=== PATIENT | female | born 1980 | race Caucasian/White ===

== ENCOUNTER 2016-09-11 10:37 | Emergency (ER) | payer MEDICAID ==
[~2016-09-11] VITALS: Wt 70.0 kg
[2016-09-11] MEDS ORDERED: ACETAMINOPHEN 325 MG TAB PO STA (11:06)
[2016-09-11] MEDS ORDERED: SOD CHLORIDE 0.9% 1,000 ML IV STA (11:06)
[2016-09-11] MEDS ORDERED: METOCLOPRAMIDE 10 MG INJ IV ONE (11:30)
[2016-09-11 11:47] LABS: ADD UMIC YES; URINE BILIRUBIN (Dip) NEGATIVE (NEGATIVE); URINE BLOOD (Dip) TRACE (NEGATIVE); URINE COLOR LT. YELLOW (YELLOW); URINE KETONES (Dip) TRACE (NEGATIVE); URINE LEUKOCYTE ESTERASE (Dip) 1+ (NEGATIVE); URINE NITRITE (Dip) POSITIVE (NEGATIVE); URINE TOTAL PROTEIN (Dip) NEGATIVE (NEGATIVE); URINE UROBILINOGEN (Dip) 0.2 E.U./dL (0.1-1.0)
--- NOTE | 2016-09-11 11:53 | RADRPT ---
PROCEDURE: US OB. CLINICAL INDICATION: Pelvic pain TECHNIQUE: Transabdominal and endovaginal imaging of the gravid uterus is available for review COMPARISON: None available FINDINGS: There is a single intrauterine demonstrating a heart rate of 176 bpm. The crown-rump odessa th equals 2.28 cm, giving an estimated gestational age of 9 weeks 2 days by ultrasound criteria. No subchorionic hemorrhage is identified. The ovaries are unremarkable. IMPRESSION: Single live intrauterine with an estimated gestational age of 9 weeks 2 days by ultrasound criteria and an estimated date of delivery of 04/14/2017. RPTAT: HH .Shara Bear MD, MD Date Time Electronically viewed and signed by .Shara Bear MD, on 09/11/2016 11:53 .G/
[2016-09-11 12:06] LABS: BACTERIA,URINE MANY
[2016-09-11 12:50] LABS: BASOPHILS % 0.5 % (0.0-2.0); EOSINOPHILS # 0.1 10^3/ul (0.0-0.5); EOSINOPHILS % 1.1 % (0.0-7.0); HEMATOCRIT 39.2 % (37.0-47.0); HEMOGLOBIN 13.8 g/dl (12.0-16.0); LYMPHOCYTES # 2.1 10^3/ul (0.8-2.9); LYMPHOCYTES % 20.5 % (15.0-51.0); MEAN CORPUSCULAR HEMOGLOBIN 29.8 pg (29.0-33.0); MEAN CORPUSCULAR HGB CONC 35.3 g/dl (32.0-37.0); MEAN CORPUSCULAR VOLUME 84.5 fl (82.0-101.0); MONOCYTE # 0.6 10^3/ul (0.3-0.9); MONOCYTES % 6.3 % (0.0-11.0); NEUTROPHIL # 7.3 10^3/ul (1.6-7.5); NEUTROPHILS % 71.6 % (39.0-77.0); PLATELET COUNT 253 10^3/UL (140-440); RED BLOOD COUNT 4.64 10^6/ul (4.20-5.40); RED CELL DISTRIBUTION WIDTH 13.8 % (11.5-14.5); UNCORRECTED WBC 10.2 10^3/ul (4.8-10.8); WHITE BLOOD COUNT 10.2 10^3/ul (4.8-10.8)
[2016-09-11 12:51] LABS: CONDITION 1
[2016-09-11] MEDS ORDERED: ACETAMINOPHEN 500 MG TAB PO STA (13:20)
[2016-09-11] MEDS ORDERED: CEPHALEXIN 500 MG CAP PO ONE (13:30)
[2016-09-11] MEDS ORDERED: METO10TA92 PO (13:32)
[2016-09-11] MEDS ORDERED: CEPH-443 PO (13:32)
[2016-09-11] MEDS ORDERED: ACET500C5 PO (13:32)
--- NOTE | 2016-09-11 13:36 | ERD ---
ER Documentation Chief Complaint Date/Time DATE: 09/11/16 TIME: 13:34 Chief Complaint 8 days abd pain no vag bleed. 8 wks preg. HPI This 35-year-old female presents with lower abdominal pain for 8 days which is intermittent crampy. She just has vomiting. She is approximately 8 weeks by dates. She denies vaginal bleeding or specific right lower right upper quadrant abdominal pain. She is a G5 para 4 per ROS All systems reviewed and are negative except as per history of present illness. Medications Home Meds Active Scripts Metoclopramide* (Reglan*) 10 Mg Tablet, 10 MG PO Q6 Y for NAUSEA AND/OR VOMITING , #15 TAB Prov:TYRONE DARNELL MD 09/11/16 Acetaminophen* (Tylophen*) 500 Mg Capsule, 1 CAP PO Q6H Y for PAIN AND OR ELEVATED TEMP, #15 CAP Prov:TYRONE DARNELL MD 09/11/16 Cephalexin* (Keflex*) 500 Mg Capsule, 55 MG PO QID for 5 Days, CAP Prov:TYRONE DARNELL MD 09/11/16 Allergies Allergies: Coded Allergies: No Known Drug Allergies (Verified Allergy, Mild, 02/12/11) PMhx/Soc Medical and Surgical Hx: pt denies Surgical Hx History of Surgery: No Anesthesia Reaction: No Hx Neurological Disorder: No Hx Respiratory Disorders: No Hx Cardiac Disorders: Yes (htn) Hx Psychiatric Problems: No Hx Miscellaneous Medical Probl: Yes (gastritis) Hx Alcohol Use: No Hx Substance Use: No Hx Tobacco Use: No Smoking Status: Never smoker Physical Exam Vitals Vital Signs Date Time Temp Pulse Resp B/P Pulse Ox O2 Delivery O2 Flow Rate FiO2 09/11/16 10:39 97.9 100 20 113/71 99 Physical Exam Const: [] Alert, [id number] per Head: Atraumatic Eyes: Normal Conjunctiva ENT: Normal External Ears, Nose and Mouth. Neck: Full range of motion..~ No meningismus. Resp: Clear to auscultation bilaterally Cardio: Regular rate and rhythm, no murmurs Abd: Soft mild lower suprapubic tenderness. No tenderness at McBurney's point and no rebound no masses., non distended. Normal bowel sounds Skin: No petechiae or rashes Back: No midline or flank tenderness Ext: No cyanosis, or edema Neur: Awake and alert Psych: Normal Mood and Affect Result Diagram: 09/11/16 1125 Results 24 hrs Laboratory Tests Test 09/11/16 11:25 09/11/16 13:00 Basophils # 0.010^3/ul Basophils % 0.5% Beta HCG, Quantitative 624191.0mIU/ml Eosinophils # 0.110^3/ul Eosinophils % 1.1% Hematocrit 39.2% Hemoglobin 13.8g/dl Lymphocytes # 2.110^3/ul Lymphocytes % 20.5% Mean Corpuscular Hemoglobin 29.8pg Mean Corpuscular Hemoglobin Concent 35.3g/dl Mean Corpuscular Volume 84.5fl Mean Platelet Volume 10.0fl Monocytes # 0.610^3/ul Monocytes % 6.3% Neutrophils # 7.310^3/ul Neutrophils % 71.6% Nucleated Red Blood Cells # 0.010^3/ul Nucleated Red Blood Cells % 0.0/100WBC Platelet Count 54662^3/UL Red Blood Count 4.6410^6/ul Red Cell Distribution Width 13.8% Urine Bacteria MANY Urine Bilirubin NEGATIVE Urine Clarity SLIGHTLY CLOUDY Urine Color LT. YELLOW Urine Epithelial Cells FEW Urine Glucose 0.1%% Urine Hemoglobin TRACE Urine Ketones TRACE Urine Leukocyte Esterase 1+ Urine Microscopic RBC 2-5/HPF Urine Microscopic WBC 25-50/HPF Urine Nitrite POSITIVE Urine Specific [place] 1.025 Urine Total Protein NEGATIVE Urine Urobilinogen 0.2 E.U./dL Urine pH 6.0 White Blood Count 10.210^3/ul Bedside Glucose 63mg/dL Current Medications Medications (Trade) Dose Ordered Sig/Carmen Route PRN Reason Start Time Stop Time Status Last Admin Dose Admin Sodium Chloride (NS) 1,000 ml @ 1,000 mls/hr Q1H STAT IV 09/11/16 11:06 09/11/16 12:05 DC 09/11/16 11:54 Acetaminophen (Tylenol Tab) 650 mg ONCE STAT PO 09/11/16 11:06 09/11/16 11:08 DC 09/11/16 11:54 Metoclopramide HCl (Reglan) 10 mg ONCE ONCE IV 09/11/16 11:30 09/11/16 11:31 DC 09/11/16 11:54 Acetaminophen (Tylenol Tab) 500 mg ONCE STAT PO 09/11/16 13:20 09/11/16 13:28 DC Cephalexin (Keflex) 500 mg ONCE ONCE PO 09/11/16 13:30 09/11/16 13:31 DC Procedures/MDM Urine shows positive leukocytes nitrites and trace hemoglobin. Patient is Rh+. Pelvic ultrasound shows a single live intrauterine approximately 9 weeks without evidence of acute complications. Patient was given Keflex 500 mg by mouth, Reglan 10 mg IV and 1 L normal saline IV. Patient had benign abdomen and was hungry and asking for food after observation treatment. Patient has lower abdominal pain of uncertain etiology during her first trimester with signs of UTI she will be treated for this. There is no signs or symptoms currently to suggest appendicitis, acute abdomen, ectopic , tubal ovarian abscess, PID, additional causes of abdominal pain. Patient is advised to follow-up with her primary care doctor and OB as directed and scheduled. Departure Diagnosis: Primary Impression: Abdominal pain Abdominal location: lower abdomen, unspecified Qualified Code: R10.30 - Lower abdominal pain Condition: Stable Patient Instructions: Abdominal Pain, Early Additional Instructions: Examines de embarazo normal hoy. tiene poquito infeccion en orina y vamos a tratar. Cheque otro vez con park doctor primario en el proximo eli or regresa para mas o nueva simptomas. TYRONE DARNELL MD Sep 11, 2016 13:36
[2016-09-11 13:56] VITALS: BP 106/59; PULSE 89; RESP 16; TEMP 98.3
== END 2016-09-11 13:58 | disposition home or self-care (01) ==
LOC: FTE 10:37
DX: O26.891 Other specified pregnancy related conditions, first trimester (principal); R10.30 Lower abdominal pain, unspecified; O10.011 Pre-existing essential hypertension complicating pregnancy, first trimester; R10.2 Pelvic and perineal pain; Z3A.09 9 weeks gestation of pregnancy
CPT/HCPCS: 36415; 76801; 81001; 82962; 84702; 85025; 86900; 86901; 96374; J2765; J7030; Z7502; Z7610; 81003

== ENCOUNTER → 2016-09-21 | Outpatient (CLI) | payer MEDICAID ==
[~2016-09-21] MED LIST: ACET500C5 PO; CEPH-443 PO; METO10TA92 PO
--- NOTE | 2016-09-21 09:12 | RADRPT ---
PROCEDURE: US Pelvis. CLINICAL INDICATION: . TECHNIQUE: Multiple sonographic images of the pelvis were obtained utilizing a transabdominal and endovaginal technique. The images were reviewed on a PACS workstation. COMPARISON: 09/11/2016. FINDINGS: There is a single living intrauterine gestation. No definite yolk sac is not visualized on the curr ent study. There is cardiac activity 168 beats per minute. The mean gestational sac size is 5.01 c m consistent with 96-qmwv-8-day gestation. The mean crown-rump length is 3.75 cm consistent with a 16-uwfo-0-day gestation. There is a small subchorionic hemorrhage present. There is a small subchor ionic hemorrhage present. There are no adnexal masses seen and no free fluid in the cul-de-sac. IMPRESSION: 1. Single living intrauterine gestation with a mean gestational age by ultrasound of 11 weeks 0 days plus or minus 5 days. Estimated date of delivery is 04/12/2017. 2. Small subchorionic hemorrhage. RPTAT: [facility] Physician Deepthi Date Time Electronically viewed and signed by Physician Deepthi on 09/21/2016 09:12 /
== END | disposition home or self-care (01) ==
LOC: U/S 08:21
PROVIDERS: ATTEND Obstetrics & Gynecology
DX: Z34.91 Encounter for supervision of normal pregnancy, unspecified, first trimester (principal); Z3A.11 11 weeks gestation of pregnancy
CPT/HCPCS: 76801

== ENCOUNTER 2017-01-18 18:13 | Emergency (ER) | payer MEDICAID ==
[~2017-01-18] VITALS: Ht 160 cm; Wt 77.5 kg
[2017-01-18 18:17] VITALS: Ht 160 cm; Wt 77.5 kg
--- NOTE | 2017-01-18 20:58 | RADRPT ---
PROCEDURE: Ultrasound of the right lower extremity venous system. CLINICAL INDICATION: Right leg pain and swelling, deep venous thrombosis TECHNIQUE: Lackey scale with and without compression, color doppler, spectral doppler of the venous system of the right lower extremity was performed. Venous augmentation maneuvers were utilized. COMPARISON: No prior studies are available for comparison. FINDINGS: Common femoral vein: Patent. Femoral vein: Patent. Popliteal vein: Patent. Calf veins: Patent. No soft tissue abnormalities are identified. IMPRESSION: No evidence of a deep vein thrombosis within the right lower extremity. RPTAT: AADD .Randy Wisdom MD, MD Date Time Electronically viewed and signed by .Randy Wisdom MD, on 01/18/2017 20:58 .B/
[2017-01-18 21:20] VITALS: BP 109/59; PULSE 80; RESP 20
[2017-01-18] MEDS ORDERED: ACETAMINOPHEN 325 MG TAB PO ONE (21:30)
--- NOTE | 2017-01-18 21:39 | ERD ---
ER Documentation Chief Complaint Date/Time DATE: 01/18/17 TIME: 21:36 Chief Complaint pt presents with R leg pain and swelling sent to r/o DVT. HPI This patient is a 36-year-old female who is Ab0 LC for currently 28 weeks presenting to the emergency department for right leg pain which began the same. She states it is 7 out of 10 and constant. It is localized to the sewell area. Symptoms are aggravated by walking. She is taken no medication for relief of symptoms. The patient denies vaginal bleeding, suprapubic cramping, vaginal discharge, fevers, chills, or other symptoms at this time. ROS All systems reviewed and are negative except as per history of present illness. Medications Home Meds Active Scripts Metoclopramide* (Reglan*) 10 Mg Tablet, 10 MG PO Q6 Y for NAUSEA AND/OR VOMITING , #15 TAB Prov:TYRONE DARNELL MD 09/11/16 Acetaminophen* (Tylophen*) 500 Mg Capsule, 1 CAP PO Q6H Y for PAIN AND OR ELEVATED TEMP, #15 CAP Prov:TYRONE DARNELL MD 09/11/16 Cephalexin* (Keflex*) 500 Mg Capsule, 55 MG PO QID for 5 Days, CAP Prov:TYRONE DARNELL MD 09/11/16 Allergies Allergies: Coded Allergies: No Known Drug Allergies (Verified Allergy, Mild, 01/18/17) PMhx/Soc History of Surgery: No Anesthesia Reaction: No Hx Neurological Disorder: No Hx Respiratory Disorders: No Hx Cardiac Disorders: Yes (htn) Hx Psychiatric Problems: No Hx Miscellaneous Medical Probl: Yes (gastritis) Hx Alcohol Use: No Hx Substance Use: No Hx Tobacco Use: No Smoking Status: Never smoker FmHx Noncontributory for chief complaint Physical Exam Vitals Vital Signs Date Time Temp Pulse Resp B/P Pulse Ox O2 Delivery O2 Flow Rate FiO2 01/18/17 21:20 80 20 109/59 99 Room Air 01/18/17 18:17 98.3 96 16 107/68 97 Physical Exam Const: The patient is resting comfortably in no acute distress. Head: Atraumatic Eyes: Normal Conjunctiva ENT: Normal External Ears, Nose and Mouth. Neck: Full range of motion..~ No meningismus. Resp: Clear to auscultation bilaterally Cardio: Regular rate and rhythm, no murmurs Abd: Gravid abdomen. Soft, non tender, non distended. Normal bowel sounds Skin: No petechiae or rashes Back: No midline or flank tenderness Ext: No cyanosis, or edema. There is tenderness palpation of the right sewell with superficial varicose veins noted. There is no calf pain or erythema. Neur: Awake and alert Psych: Normal Mood and Affect Results 24 hrs Current Medications Medications (Trade) Dose Ordered Sig/Carmen Route PRN Reason Start Time Stop Time Status Last Admin Dose Admin Acetaminophen (Tylenol Tab) 650 mg ONCE ONCE PO 01/18/17 21:30 01/18/17 21:30 DC 01/18/17 21:19 [place] [id number] Radiology Main Line: [phone] DIAGNOSTIC IMAGING REPORT Patient: CARLOS BANDA : 1980 Age: 36 Sex: F MR #: [id number] DOS: 01/18/17 0000 Ordering MD: RANDY SR PA-C Location: [facility] Room/Bed: PROCEDURE: Ultrasound of the right lower extremity venous system. CLINICAL INDICATION: Right leg pain and swelling, deep venous thrombosis TECHNIQUE: Lackey scale with and without compression, color doppler, spectral doppler of the venous system of the right lower extremity was performed. Venous augmentation maneuvers were utilized. COMPARISON: No prior studies are available for comparison. FINDINGS: Common femoral vein: Patent. Femoral vein: Patent. Popliteal vein: Patent. Calf veins: Patent. No soft tissue abnormalities are identified. IMPRESSION: No evidence of a deep vein thrombosis within the right lower extremity. RPTAT: AADD .Randy Wisdom MD, MD Date Time Electronically viewed and signed by .Randy Wisdom MD, MD on 01/18/2017 20:58 .B/ CC: RANDY SR PA-C Procedures/MDM 36-year-old female presents to the emergency department with complaints of right sewell pain which began this morning. On physical examination the patient' s vitals are within normal limits. The patient has absolutely no obstetrics complaints although after she was cleared in the emergency department she was transferred up to the L&D department for clearance of the . Examination of the right lower extremity showed some varicosities superficially to the right sewell with some tenderness palpation but there is no calf pain or erythema. Venous Doppler of the right lower extremity showed No evidence of a deep vein thrombosis and was interpreted by the radiologist. I low suspicion for DVT, cellulitis, or other emergent conditions. The patient is to have close follow-up with the primary care physician within the next 1-2 days. The patient is to have close follow-up with her [facility] [employer] specialist within the next 1- 2 days. Strict ER return precautions were discussed and the patient demonstrates good understanding. Departure Diagnosis: Primary Impression: Pain of right leg Condition: Fair Patient Instructions: Possible Causes of Low Back or Leg Pain Referrals: VARUN AMADOR MD (PCP) Additional Instructions: Ir a departamento de emabrazada para evaluacion de park joshua. No mas mejor en 2-3 eli, regresar. Mas peor en 24 horas, regresear rapidamente. Ir a doctor primario in 5-7 eli. Usar instrucciones cuando aliyah medicamento. RANDY SR PA-C January 18, 2017 21:39
[2017-01-18] MEDS ORDERED: PREN1TAB17 PO (22:18)
== END 2017-01-18 21:26 | disposition home or self-care (01) ==
LOC: FTE 18:13
DX: O99.89 Other specified diseases and conditions complicating pregnancy, childbirth and the puerperium (principal); M79.661 Pain in right lower leg; O10.013 Pre-existing essential hypertension complicating pregnancy, third trimester; Z3A.28 28 weeks gestation of pregnancy
CPT/HCPCS: 93971; Z7502; Z7610

== ENCOUNTER 2017-01-18 21:36 | Outpatient (CLI) | payer MEDICAID ==
[~2017-01-18] VITALS: Ht 149.9 cm; Wt 76.8 kg
[2017-01-18 22:13] VITALS: Ht 149.9 cm; Wt 76.8 kg
[2017-01-18 22:15] VITALS: BP 96/53; PULSE 81; RESP 18
[2017-01-18] MEDS ORDERED: PREN1TAB17 PO (22:18)
--- NOTE | 2017-01-19 02:07 | PN ---
Date/Time of Note Date/Time of Note DATE: 01/19/17 TIME: 02:02 OB Subjective Subjective Subjective 36 Year-old with SIUP at 28 presents with a chief complaint of right leg pain. She was seen in ER, work up done and sent to triage for evaluation. She has been receiving her care with [facility]. She states good movement. She denies nausea, vomiting, shortness of breath, chest pain, and abdominal pain between contractions, headache, visual changes, vaginal bleeding or LOF. OB Objective Objective Objective General: Patient appears well, alert and oriented, NAD, appropriate mood and affect ABD: gravid, soft, non-tender. Back: No CVA tenderness (B/L) LE: No clubbing, cyanosis, edema, thigh or calf tenderness bilaterally. Varicose vein at right leg FHT: 135 bpm , moderate variability with acceleration, no deceleration-category I Contractions: None OB Assessment/Plan Other plan: 36 Year-old with SIUP at 28 presents with right leg pain, her evaluation in ER was unremarkable - FHR: No sign of metabolic acidosis- Category I - Continuous EFM, toco - Contractions: None. - Reactive NST. - Recommend use support stocking - Symptoms and sign of labor, preeclampsia, kick count discussed with patient, she voiced understanding. All of her questions answered. - Patient was discharged home in stable condition with the appropriate discharge instructions provided. I would like patient to have close follow-up with her primary physician or outpatient clinic in 1-2 days or return to the ER for worsening symptoms or any other urgent concerns. PHYLLIS CHANG January 19, 2017 02:07
== END 2017-01-18 23:55 | disposition home or self-care (01) ==
LOC: OBT 21:36 → L-D 21:39 → OBT 23:55
PROVIDERS: ATTEND Obstetrics & Gynecology
DX: O26.892 Other specified pregnancy related conditions, second trimester (principal); M79.604 Pain in right leg; Z3A.28 28 weeks gestation of pregnancy
CPT/HCPCS: G0463

== ENCOUNTER 2017-04-02 12:22 | Inpatient (IN) | payer MEDICAID ==
[~2017-04-02] VITALS: Ht 152.4 cm; Wt 77.0 kg
[~2017-04-02 12:22] MED LIST changes: +PREN1TAB17 PO
[2017-04-02] MEDS: LACTATED RINGER'S 1,000 ML IV SCH ×3 (13:26→20:15)
[2017-04-02 13:28] VITALS: Ht 152.4 cm; Wt 77.0 kg
[2017-04-02 13:29] VITALS: BP 114/67; PULSE 91; RESP 18
[2017-04-02] MEDS ORDERED: CARBOPROST 250 MCG INJ IM PRN ×2 (13:30→20:00)
[2017-04-02] MEDS ORDERED: MISOPROSTOL 200 MCG TAB PR PRN ×2 (13:30→20:00)
[2017-04-02] MEDS ORDERED: METHYLERGONOVINE 0.2 MG INJ IM PRN ×2 (13:30→20:00)
[2017-04-02] MEDS ORDERED: OXYTOCIN 30 UNITS/LR 500 ML IV SCH (13:30)
[2017-04-02] MEDS ORDERED: OXYTOCIN 30 UNITS/LR 500 ML IV PRN ×2 (13:30→20:00)
[2017-04-02] MEDS ORDERED: CEFAZOLIN 2 GM/50 ML (PMX) 50 ML IV SCH (13:30)
[2017-04-02 13:36] LABS: BASOPHILS % 0.4 % (0.0-2.0); EOSINOPHILS # 0.1 10^3/ul (0.0-0.5); EOSINOPHILS % 0.8 % (0.0-7.0); HEMATOCRIT 34.7 % (37.0-47.0); HEMOGLOBIN 11.2 g/dl (12.0-16.0); LYMPHOCYTES # 2.5 10^3/ul (0.8-2.9); LYMPHOCYTES % 24.6 % (15.0-51.0); MEAN CORPUSCULAR HEMOGLOBIN 25.4 pg (29.0-33.0); MEAN CORPUSCULAR HGB CONC 32.3 g/dl (32.0-37.0); MEAN CORPUSCULAR VOLUME 78.7 fl (82.0-101.0); MEAN PLATELET VOLUME 10.6 fl (7.4-10.4); MONOCYTE # 0.7 10^3/ul (0.3-0.9); NEUTROPHIL # 6.7 10^3/ul (1.6-7.5); NEUTROPHILS % 65.7 % (39.0-77.0); PLATELET COUNT 238 10^3/UL (140-415); RED BLOOD COUNT 4.41 10^6/ul (4.20-5.40); RED CELL DISTRIBUTION WIDTH 13.9 % (11.5-14.5); WHITE BLOOD COUNT 10.2 10^3/ul (4.8-10.8)
[2017-04-02] MEDS ORDERED: CALC600T11 PO (13:40)
[2017-04-02 13:49] LABS: INR 0.96; PROTIME 12.8 Sec (12.2-14.2)
[2017-04-02] MEDS ORDERED: EPHEDrine SULFATE 50 MG/5 ML SYG ONE (15:08)
[2017-04-02] MEDS ORDERED: ONDANSETRON 4 MG INJ ONE (15:08)
[2017-04-02] MEDS ORDERED: OXYTOCIN 30 UNITS/LR 500 ML IV ONE (15:08)
[2017-04-02] MEDS ORDERED: OXYTOCIN 10 UNIT INJ ONE (15:08)
[2017-04-02] MEDS ORDERED: morphine SULFATE/PF (10 MG/10 ML) INJ ONE (15:08)
[2017-04-02] MEDS ORDERED: METOCLOPRAMIDE 10 MG INJ ONE (15:08)
--- NOTE | 2017-04-02 16:19 | HP ---
Date/Time of Note Date/Time of Note DATE: 04/02/17 TIME: 16:15 OB - History Hx of Present Free Text/Dictation admitted for repeat C/S Last Menstrual Period: Jul 03, 2016 Estimated Due Date: Apr 09, 2017 : 5 Para: 4 Care: Good Care Ultrasounds: Normal mid trimester US Obstetrical Complications: None Medical Complications: None, Other (previous C/S X 1 ) Past Family/Social History * Past Medical, Surgical, Family and Obstetric Histories reviewed from chart. Blood Type: B+ Rubella: immune RPR/VDRL: Negative GBS Status: Negative HBsAG: Negative OB Admission Exam Vital Signs Vital Signs Vital Signs Date Time Temp Pulse Resp B/P Pulse Ox O2 Delivery O2 Flow Rate FiO2 04/02/17 13:29 98.0 91 18 114/67 Room Air Physical Exam HEENT: WNL Heart: Rhythm Normal Lungs: Clear, Equal Abdomen: WNL Extremities: Normal Reflexes: Normal Cervical Dilatation: None Effacement: 0% Station: -3 Membranes: Intact Heart Rate: 140's Accelerations: Accelerations Present Decelerations: No Decelerations Varibility: Marked Contractions on Admission: >10 Minutes Apart Last 72 hours Lab Results CBC & BMP 04/02/17 13:15 OB Assessment/Plan Reason for admission: section Other Assessment: Term gestation Other plan: Repeat VARUN AMADOR MD Apr 02, 2017 16:19
--- NOTE | 2017-04-02 16:22 | OPR ---
Operative Report Planned Procedure Procedure date Apr 02, 2017 Procedure(s) Repeat Performed by: VARUN AMADOR MD Assisting provider: HANS KATZ MD Anesthesiologist: ROBBIE REIS MD Pre-procedure diagnosis Term gestation Previous Anesthesia Type: spinal Procedure Description Under satisfactory anaesthesia a Pfannenstiel incision was made two fingerbreadth above and parallel to the symphysis of pubis around the previous scar and previous scar was removed Incision was extended laterally to the border of the Recti muscles on either sides. Incision was carried down with sharp and blunt dissection until fascia was reached. Anterior Recti muscle fascia was incised in mid portion and incision extended laterally to the border of skin incision. Fascia was mobilized from muscle superiorly and Recti muscles were from midline using sharp and blunt dissection. Peritoneum was visualized; Avoiding bowel and bladder it was incised . Incision was extended superiorly and inferiorly. Bladder blade was placed. Posterior peritoneum covering the lower segment of the uterus and lower segment of the uterus were incised.Low transverse uteine incision was made on lower segment of the uterus. Incision extended laterally to the border of Round Lig. on either sides and baby was delivered from OT. position . Amniotic fluid appeared clear. Cord blood was obtained and cord had 3 vessels . Placenta was delivered spontaneously and appeared intact and complete. Intrauterine cavity was rubbed with a laparotomy sponge. Uterine incision was closed in 2 layers using running stitches of No1 Monocryl. Hemostasis appeared secure. Ovaries and Fallopian tubes were within normal limits. Announcing needle, lap sponge and instrument count to be correct abdomen was closed in layers as follows: Peritoneum and Recti muscles with running stitches of 20 Vicryl. Fascia with running stitch of No 1 PDS. Subcutaneous tissue with running stitches of 20 Chromic and skin was closed using song. Patient tolerated the procedure well and was transferred to [facility] in good condition. Post-Procedure Post-procedure diagnosis Repeat Findings: Live Baby in OT position Clear amniotic fluid Normal fallopian tubes and ovaries Complications: None Pt Condition post procedure: stable Disposition: PACU Physician Certification I, the undersigned physician, hereby certify that I have discussed the procedure described in this consent form with this patient (or the patient's legal financial sales representative), including: * The risk and benefits of the procedure; * Any adverse reactions that may reasonably be expected to occur; * Any alternative efficacious methods of treatment which may be medically viable ; * The potential problems that may occur during recuperation; * Potential for blood transfusion and associated risks/benefits; and * Any research or economic interest I may have regarding this treatment. I further certify that the patient/legally responsible person was encouraged to ask question and that all questions were answered. VARUN AMADOR MD Apr 02, 2017 16:21
[2017-04-02] MEDS ORDERED: ONDANSETRON 4 MG INJ IV PRN (16:30)
[2017-04-02] MEDS ORDERED: DIPHENHYDRAMINE 50 MG INJ IV PRN (16:30)
[2017-04-02] MEDS ORDERED: NALOXONE (0.4 MG/ML) INJ IV PRN (16:30)
[2017-04-02] MEDS ORDERED: EPHEDrine SULFATE 50 MG/5 ML SYG IV PRN (16:30)
[2017-04-02] MEDS ORDERED: morphine 2 MG INJ IV PRN ×2 (16:30)
[2017-04-02] MEDS ORDERED: morphine SULFATE/PF (10 MG/10 ML) INJ SPINAL ONE (16:30)
[2017-04-02] MEDS: KETOROLAC 30 MG INJ IV PRN (17:41)
[2017-04-02 19:25] VITALS: BP 101/62; PULSE 101
[2017-04-02 19:46] VITALS: BP 114/65; PULSE 114; RESP 20
[2017-04-02] MEDS ORDERED: NA PHOSPHATE/BIPHOS 133 ML ENEMA PR PRN (20:00)
[2017-04-02] MEDS ORDERED: ACETAMINOPHEN/CODEINE #3 TAB PO PRN (20:00)
[2017-04-02] MEDS ORDERED: LANOLIN 7 GM TUBE TOP PRN (20:00)
[2017-04-02 20:15] VITALS: BP 105/59; PULSE 107; RESP 18
[2017-04-02] MEDS: SENNA/DOCUSATE NA (8.6MG/50MG) TAB PO SCH (21:00)
[2017-04-02] MEDS: IBUPROFEN 800 MG TAB PO SCH (22:00)
[2017-04-02] MEDS: CEFAZOLIN 2 GM/50 ML (PMX) 50 ML IV SCH (22:24)
[2017-04-03 00:30] VITALS: BP 115/63; PULSE 99; RESP 18
[2017-04-03] MEDS: CLINDAMYCIN 300 MG CAP PO SCH ×5 (00:42→23:35)
[2017-04-03] MEDS: LACTATED RINGER'S 1,000 ML IV SCH ×2 (03:29→12:09)
[2017-04-03 04:13] VITALS: BP 98/57; PULSE 95; RESP 18
[2017-04-03] MEDS: KETOROLAC 30 MG INJ IV PRN ×2 (05:58→14:23)
[2017-04-03] MEDS: CEFAZOLIN 2 GM/50 ML (PMX) 50 ML IV SCH ×2 (05:58→12:10)
[2017-04-03] MEDS: IBUPROFEN 800 MG TAB PO SCH ×3 (06:00→23:35)
[2017-04-03 07:13] LABS: BASOPHILS % 0.1 % (0.0-2.0); EOSINOPHILS % 0.1 % (0.0-7.0); HEMATOCRIT 27.9 % (37.0-47.0); HEMOGLOBIN 8.9 g/dl (12.0-16.0); LYMPHOCYTES # 1.8 10^3/ul (0.8-2.9); LYMPHOCYTES % 12.2 % (15.0-51.0); MEAN CORPUSCULAR HEMOGLOBIN 25.3 pg (29.0-33.0); MEAN CORPUSCULAR HGB CONC 31.9 g/dl (32.0-37.0); MEAN CORPUSCULAR VOLUME 79.3 fl (82.0-101.0); MEAN PLATELET VOLUME 10.2 fl (7.4-10.4); MONOCYTES % 7.1 % (0.0-11.0); NEUTROPHIL # 11.5 10^3/ul (1.6-7.5); NEUTROPHILS % 79.5 % (39.0-77.0); PLATELET COUNT 177 10^3/UL (140-415); RED BLOOD COUNT 3.52 10^6/ul (4.20-5.40); RED CELL DISTRIBUTION WIDTH 13.8 % (11.5-14.5); WHITE BLOOD COUNT 14.5 10^3/ul (4.8-10.8)
[2017-04-03 08:30] VITALS: BP 100/57; PULSE 71; RESP 16
[2017-04-03] MEDS: SENNA/DOCUSATE NA (8.6MG/50MG) TAB PO SCH ×2 (09:00→23:35)
[2017-04-03] MEDS ORDERED: BISACODYL 10 MG SUPP PR ONE (10:30)
[2017-04-03 12:00] VITALS: BP 101/60; PULSE 72; RESP 18
[2017-04-03 16:00] VITALS: BP 98/48; PULSE 73; RESP 18
--- NOTE | 2017-04-03 17:22 | PN ---
Date/Time of Note Date/Time of Note DATE: 04/03/17 TIME: 17:21 Assessment/Plan VTE Prophylaxis VTE Prophylaxis Intervention: ambulation Lines/Catheters IV Catheter Type (from Nrsg): Peripheral IV Assessment/Plan Assessment/Plan Status post postop day 1 We will advance diet and ambulate Subjective 24 Hr Interval Summary No bowel movement Passing flatus Constitutional: BM, ambulates, flatus, improved, no complaints, urine output Pain Control: well controlled Exam/Review of Systems Vital Signs Vitals Vital Signs Date Time Temp Pulse Resp B/P Pulse Ox O2 Delivery O2 Flow Rate FiO2 04/03/17 16:00 98.9 73 18 98/48 Room Air 04/03/17 15:50 98 21 Intake and Output 04/02/17 04/02/17 04/03/17 15:00 23:00 07:00 Intake Total 2000 ml Output Total 1000 ml 1000 ml Balance 1000 ml -1000 ml Exam Free Text/Dictation Abdomen is soft and tender around incision Bowel sounds are present Incision is covered Constitutional: alert, oriented, well developed Psych: nl mood/affect, no complaints Head: atraumatic, normocephalic Eyes: EOMI, nl conjunctiva, nl lids, nl sclera ENMT: mucosa pink and moist, nl external ears & nose, nl lips & teeth, nl nasal mucosa & septum Neck: non-tender, supple Respiratory: clear to auscultation, normal air movement Cardiovascular: nl pulses, regular rate and rhythm Gastrointestinal: nl liver, spleen, non-tender, soft Drains None Musculoskeletal: nl extremities to inspection, nl gait and stance Extremities: normal pulses Neurological: CASH APPLICATIONS REPRESENTATIVE II-XII intact, nl mental status, nl speech, nl strength Skin: nl turgor, rash or lesions Lymph: nl lymph nodes Results Result Diagram: 04/03/17 0642 VAURN AMADOR MD Apr 03, 2017 17:22
[2017-04-03] MEDS: OXYCODONE/ACETAMINOPHEN (5/325) TAB PO PRN (19:42)
[2017-04-03 20:15] VITALS: BP 115/55; PULSE 84; RESP 18
[2017-04-04] MEDS: OXYCODONE/ACETAMINOPHEN (5/325) TAB PO PRN ×4 (01:47→20:03)
[2017-04-04 05:29] VITALS: BP 97/65; PULSE 65; RESP 18
[2017-04-04] MEDS: IBUPROFEN 800 MG TAB PO SCH ×3 (06:00→22:00)
[2017-04-04] MEDS: CLINDAMYCIN 300 MG CAP PO SCH ×3 (06:08→18:14)
[2017-04-04 08:12] LABS: BASOPHILS % 0.4 % (0.0-2.0); EOSINOPHILS # 0.1 10^3/ul (0.0-0.5); EOSINOPHILS % 1.4 % (0.0-7.0); HEMATOCRIT 28.8 % (37.0-47.0); LYMPHOCYTES # 2.9 10^3/ul (0.8-2.9); LYMPHOCYTES % 28.1 % (15.0-51.0); MEAN CORPUSCULAR HEMOGLOBIN 24.8 pg (29.0-33.0); MEAN CORPUSCULAR HGB CONC 31.3 g/dl (32.0-37.0); MEAN CORPUSCULAR VOLUME 79.3 fl (82.0-101.0); MEAN PLATELET VOLUME 10.3 fl (7.4-10.4); MONOCYTE # 0.9 10^3/ul (0.3-0.9); MONOCYTES % 8.8 % (0.0-11.0); NEUTROPHIL # 6.3 10^3/ul (1.6-7.5); NEUTROPHILS % 60.1 % (39.0-77.0); PLATELET COUNT 212 10^3/UL (140-415); RED BLOOD COUNT 3.63 10^6/ul (4.20-5.40); RED CELL DISTRIBUTION WIDTH 14.2 % (11.5-14.5); WHITE BLOOD COUNT 10.4 10^3/ul (4.8-10.8)
[2017-04-04 08:15] VITALS: BP 103/58; PULSE 72; RESP 16
[2017-04-04] MEDS: SENNA/DOCUSATE NA (8.6MG/50MG) TAB PO SCH ×2 (08:48→20:03)
--- NOTE | 2017-04-04 15:35 | DS ---
Date/Time of Note Date/Time of Note home next day DATE: 04/04/17 TIME: 15:32 Obstetrical Discharge Record Final Diagnosis Final Diagnosis: Term delivered Other Final Diagnosis S/P C/S Vaginal Delivery Obstetrical Delivery: Bilateral Tubal Ligation Section Section: Repeat Condition on Discharge Physical Assessment Last Vitals: see nurses notes Voiding: Yes Bowel Movement: Yes Breast: Soft, non-tender, Filling Fundus: Firm Abdomen and Incision: soft BS + tender in lower segments Incision: mosqueda no induration and or erythema Episiotomy: NA Calf Tenderness: No Patient Condition: Good VARUN AMADOR MD Apr 04, 2017 15:35
--- NOTE | 2017-04-04 15:37 | DS ---
Date/Time of Note Date/Time of Note DATE: 04/04/17 TIME: 15:35 Discharge Summary Admission/Discharge Info Admit Date/Time Apr 02, 2017 at 12:22 Discharge Date/Time 04/05/2017 Discharge Diagnosis S/P C/S Patient Condition: Good Procedures repeat C/S Hx of Present Illness 36 y/o female had repeat C/S Hospital Course uncomplicated Home Meds Reported Medications Calcium Carbonate* (Calcium Carbonate*) 600 MG Ca Tab, 600 MG PO, TAB 04/02/17 Vit-Iron Fumarate-FA ( Tablet) 1 Each Tablet, 1 TAB PO DAILY, TAB 01/18/17 Discontinued Scripts Metoclopramide* (Reglan*) 10 Mg Tablet, 10 MG PO Q6 Y for NAUSEA AND/OR VOMITING , #15 TAB Prov:TYRONE DARNELL MD 09/11/16 Acetaminophen* (Tylophen*) 500 Mg Capsule, 1 CAP PO Q6H Y for PAIN AND OR ELEVATED TEMP, #15 CAP Prov:TYRONE DARNELL MD 09/11/16 Cephalexin* (Keflex*) 500 Mg Capsule, 55 MG PO QID for 5 Days, CAP Prov:TYRONE DARNELL MD 09/11/16 Follow-up Plan 2-3 days in clinic for staple removal Primary Care Provider Care Physician No Primary Pending Labs Laboratory Tests Test 04/04/17 07:17 White Blood Count 10.410^3/ul (4.8-10.8) Red Blood Count 3.6310^6/ul (4.20-5.40) Hemoglobin 9.0g/dl (12.0-16.0) Hematocrit 28.8% (37.0-47.0) Mean Corpuscular Volume 79.3fl (82.0-101.0) Mean Corpuscular Hemoglobin 24.8pg (29.0-33.0) Mean Corpuscular Hemoglobin Concent 31.3g/dl (32.0-37.0) Red Cell Distribution Width 14.2% (11.5-14.5) Platelet Count 09999^3/UL (140-415) Mean Platelet Volume 10.3fl (7.4-10.4) Neutrophils % 60.1% (39.0-77.0) Lymphocytes % 28.1% (15.0-51.0) Monocytes % 8.8% (0.0-11.0) Eosinophils % 1.4% (0.0-7.0) Basophils % 0.4% (0.0-2.0) Nucleated Red Blood Cells % 0.0/100WBC (0.0-0.0) Neutrophils # 6.310^3/ul (1.6-7.5) Lymphocytes # 2.910^3/ul (0.8-2.9) Monocytes # 0.910^3/ul (0.3-0.9) Eosinophils # 0.110^3/ul (0.0-0.5) Basophils # 0.010^3/ul (0.0-0.1) Nucleated Red Blood Cells # 0.010^3/ul (0.0-0.0) VARUN AMADOR MD Apr 04, 2017 15:36
--- NOTE | 2017-04-04 15:39 | PD.PPDC ---
[employer] Discharge Instruction Provider Information Physician Information 36 y/o female had repeat C/S Diagnosis Final Diagnosis: S/P repeat C/S Condition Patient Condition: Good Diet Diet: Resume Regular Diet Activity/Restrictions Activity: January Shower Restrictions: No Exercising No Lifting Nothing in the Vagina Return to Work or School: Jun 07, 2017 Follow-up Follow-up with Physician: 2, 3, Day/Days (in clinic for staple removal) Return to clinic for MANAGER DIGITAL Instructions: Fever greater than 101 Chills OB Instructions: Breast Tenderness Depression Surgical Instructions: Incisional Drainage Incisional Redness VARUN AMADOR MD Apr 04, 2017 15:39
[2017-04-04] MEDS ORDERED: IBUP800T25 PO (15:42)
[2017-04-04 16:00] VITALS: BP 97/65; PULSE 82; RESP 16
[2017-04-04 20:00] VITALS: BP 95/65; PULSE 74; RESP 19
[2017-04-05] MEDS: CLINDAMYCIN 300 MG CAP PO SCH ×2 (00:15→06:05)
[2017-04-05] MEDS: OXYCODONE/ACETAMINOPHEN (5/325) TAB PO PRN ×2 (00:15→08:37)
[2017-04-05 04:00] VITALS: BP 105/66; PULSE 72; RESP 18
[2017-04-05] MEDS: IBUPROFEN 800 MG TAB PO SCH (06:05)
[2017-04-05] MEDS: SENNA/DOCUSATE NA (8.6MG/50MG) TAB PO SCH (08:38)
[2017-04-05 08:40] VITALS: BP 101/61; PULSE 80; RESP 16
[2017-04-05] MEDS ORDERED: DIPHTH/TET/ACEL PERTUSS (ADULT) 0.5 ML VIAL IM* ONE (09:00)
[2017-04-05] MEDS ORDERED: MEASLES,MUMPS,RUBELLA VACCINE INJ SC* ONE (09:00)
== END 2017-04-05 12:10 | disposition home or self-care (01) | DRG 766 ==
LOC: L-D 12:22 → PP1 20:04
PROVIDERS: ADMIT Obstetrics & Gynecology; ATTEND Obstetrics & Gynecology
PROC: 10D00Z1 Extraction of Products of Conception, Low, Open Approach (ICD-10-PCS; principal; 2017-04-02 14:00)
DX: O82 Encounter for cesarean delivery without indication (principal); O34.211 Maternal care for low transverse scar from previous cesarean delivery; Z37.0 Single live birth; Z3A.00 Weeks of gestation of pregnancy not specified
CPT/HCPCS: 85025; 85610; 85730; 86592; 86850; 86900; 86901; 87340; 90715; 94760; 99464; J0690; J1885; J2274; J2405; J2590; J2765; J7120

== ENCOUNTER 2017-09-30 13:40 | Emergency (ER) | END 2017-09-30 20:51 | disposition home or self-care (01) ==

== ENCOUNTER 2018-09-15 11:31 | Outpatient (CLI) | payer MEDICAID ==
[~2018-09-15] VITALS: Ht 152.4 cm; Wt 82.7 kg
[~2018-09-15 11:31] MED LIST changes: -ACET500C5 PO; +CALC600T24 PO; -CEPH-443 PO; +IBUP-1544 PO; +IBUP-1561 PO; -METO10TA92 PO; +ONDA4TAB14 PO
[2018-09-15 11:51] VITALS: Ht 152.4 cm; Wt 82.7 kg
[2018-09-15 11:52] VITALS: BP 98/58; PULSE 93; RESP 17
--- NOTE | 2018-09-15 14:19 | PN ---
Triage Information Date/Time 09/15/2018 Reason for visit: Status post fall Weeks of Gestation 34 weeks and 2 days /Para 6 para 5 Diabetes: none Hypertention: none Objective Vital Signs Date Temp Pulse Resp B/P (MAP) Pulse Ox O2 O2 Flow FiO2 Time Delivery Rate 09/15/18 98.3 93 17 98/58 (71) 11:52 Heart Rate: 140's Heart Rate Comments Reactive Results/Medications Result Diagram: 09/15/18 1211 Results 24 hrs Laboratory Tests Test 09/15/18 11:46 09/15/18 12:11 Urine Color STRAW Urine Clarity CLEAR Urine pH 7.0 Urine Specific [place] 1.004 Urine Ketones NEGATIVE Urine Nitrite NEGATIVE Urine Bilirubin NEGATIVE Urine Urobilinogen NEGATIVE Urine Leukocyte Esterase NEGATIVE Urine Hemoglobin NEGATIVE Urine Glucose NEGATIVE Urine Total Protein NEGATIVE White Blood Count 8.5 # Red Blood Count 3.79 #L Hemoglobin 10.4 #L Hematocrit 31.6 #L Mean Corpuscular Volume 83.4 Mean Corpuscular Hemoglobin 27.4 L Mean Corpuscular Hemoglobin Concent 32.9 Red Cell Distribution Width 12.9 Platelet Count 228 Mean Platelet Volume 10.1 Immature Granulocytes % 1.500 H Neutrophils % 66.8 Lymphocytes % 22.1 Monocytes % 8.0 Eosinophils % 1.1 Basophils % 0.5 Nucleated Red Blood Cells % 0.0 Immature Granulocytes # 0.130 H Neutrophils # 5.7 Lymphocytes # 1.9 Monocytes # 0.7 Eosinophils # 0.1 Basophils # 0.0 Nucleated Red Blood Cells # 0.0 Prothrombin Time 13.5 Prothrombin Time Ratio 1.1 INR International Normalized Ratio 1.02 Activated Partial Thromboplast Time 27.8 Imaging Results 1. Single live intrauterine fetus, now transverse presentation with the head to the maternal left. The heart rate is 131 bpm. 2. Fundal placenta, grade 1, no previa or abruptio is evident. 3. Amniotic fluid index 17.1 cm. 4. Biophysical profile score: 8/8. The EFW = 2640 g 74.2% . Disposition: Discharge Assessment/Plan Home with outpatient follow-up VARUN AMADOR MD Sep 15, 2018 14:19
--- NOTE | 2018-09-15 14:49 | TRIAGE ---
OB Triage Datetime Report Generated by CPN: 09/15/2018 14:48 Datetime: 09/15/2018 13:31 Pattern: Normal: <= 5 Contractions in 10 Minutes Resting Tone [place]: Relaxed Contraction Comments: no uc Heart Rate FHR Baseline Rate: 135 Monitor Mode: External US Variability: Moderate 6-25 bpm Accelerations: 15X15 Decelerations: None Category: Category I Comments: reactive nst Datetime: 09/15/2018 13:00 Labor Evaluation Frequency: x1 Monitor Mode: External Duration (sec)2399: 60 Quality: Mild Pattern: Normal: <= 5 Contractions in 10 Minutes Resting Tone [place]: Relaxed Heart Rate FHR Baseline Rate: 135 Monitor Mode: External US Variability: Moderate 6-25 bpm Decelerations: None Category: Category I Datetime: 09/15/2018 12:03 Pattern: Normal: <= 5 Contractions in 10 Minutes Resting Tone [place]: Relaxed Contraction Comments: NO UC Heart Rate FHR Baseline Rate: 135 Monitor Mode: External US Variability: Moderate 6-25 bpm Decelerations: None Category: Category I Datetime: 09/15/2018 11:49 Assessment Type: Triage Maternal Assessment Level of Consciousness: Fully Conscious DTR's/Clonus: DTRs 2+; No Clonus Headache: Denies Blurred Vision: No Respiratory Effort: Unlabored; Regular Rhythm; Equal Expansion Breath Sounds, Left: Clear and Equal Breath Sounds, Right: Clear and Equal Nausea/Vomiting: Denies RUQ Epigastric Pain: Denies Lower Extremities Edema: None Degree: None Upper Extremities Edema: None Degree: None Facial Edema: None Fall Risk Assessment History of Falling: (0) No Secondary Diagnosis: (0) No Ambulatory Aid: (0) Bedrest/Nurse Assist IV Therapy: (0) No Gait: (0) Normal/Bedrest/Immobile Mental Status: (0) Oriented to Own Ability Fall Score: 0 Fall Risk Score Definition: No Risk: No action required Datetime: 09/15/2018 11:48 Time of Arrival: 09/15/2018 11:27 EGA: 34.2 Arrived By: Ambulatory Arrived From: Office Chief Complaint: S/P fall 09/14/18 Movement: Present Contractions: Denies/Absent Rupture of Membranes: Denies Vaginal Bleeding: None Vaginal Discharge: Denies Recent Sexual Intercouse: Denies Abdominal Trauma: Not Applicable Patient Complaints: None Time Provider Notified: 09/15/2018 13:33 Provider Notified: Initial Plan: r/p ptl
== END 2018-09-15 14:40 | disposition home or self-care (01) ==
LOC: OBT 11:31 → L-D 11:32 → OBT 14:40
PROVIDERS: ATTEND Obstetrics & Gynecology
DX: O9A.213 Injury, poisoning and certain other consequences of external causes complicating pregnancy, third trimester (principal); O09.523 Supervision of elderly multigravida, third trimester; Z3A.34 34 weeks gestation of pregnancy
CPT/HCPCS: 76815; 76818; 81003; 85025; 85610; 85730; Z7500; G0463

== ENCOUNTER 2018-10-20 11:30 | Inpatient (IN) | payer MEDICAID ==
[~2018-10-20] VITALS: Ht 152.4 cm; Wt 82.7 kg
[~2018-10-20 11:30] MED LIST changes: +OXYTOCIN 30 UNITS/LR 500 ML BAG IV ONE
[2018-10-20] MEDS ORDERED: MISOPROSTOL 200 MCG TAB PR PRN ×2 (12:00→18:00)
[2018-10-20] MEDS ORDERED: CEFAZOLIN 2 GM/50 ML (PMX) 50 ML IVPB SCH (12:00)
[2018-10-20] MEDS ORDERED: METHYLERGONOVINE 0.2 MG INJ IM PRN ×2 (12:00→18:00)
[2018-10-20] MEDS ORDERED: OXYTOCIN 30 UNITS/LR 500 ML IV SCH (12:00)
[2018-10-20] MEDS ORDERED: CARBOPROST 250 MCG INJ IM PRN ×2 (12:00→18:00)
[2018-10-20] MEDS ORDERED: OXYTOCIN 30 UNITS/LR 500 ML IV PRN ×2 (12:00→18:00)
[2018-10-20] MEDS ORDERED: ONDANSETRON 4 MG INJ IV STA (12:51)
[2018-10-20 12:53] VITALS: Ht 152.4 cm; Wt 82.7 kg
[2018-10-20] MEDS ORDERED: CITRIC ACID/NA CITRATE 30 ML CUP PO ONE (13:00)
--- NOTE | 2018-10-20 13:15 | PREAC ---
Date/Time of Note Date/Time of Note DATE: 10/20/18 TIME: 13:14 Anesthesia Eval and Record Evaluation Time Pre-Procedure Interview DATE: 10/20/18 TIME: 13:14 Age 38 Sex female NPO: 8 hrs Preoperative diagnosis Repeat and request for BTL Planned procedure , BTL Past Medical History Past Medical History: Includes Heme: Anemia : : (6), Para: (5), Gestational age: (39) Surgery & Anesthesia Issues No known issue Meds Anticoagulation: No Beta Debora within 24 hr: No Reason Beta Debora not given: Pt. not on B-Debora Active Scripts Ibuprofen* (Motrin*) 400 Mg Tab, 400 MG PO Q6, #30 TAB Prov:STANTON BALTAZAR PA-C 09/30/17 Ondansetron (Ondansetron Odt) 4 Mg Tab.rapdis, 4 MG PO Q6H PRN for NAUSEA AND/OR VOMITING, #10 TAB Prov:STANTON BALTAZAR PA-C 09/30/17 Ibuprofen* (Ibuprofen*) 800 Mg Tablet, 800 MG PO Q8, #30 TAB 0 Refills Prov:VARUN AMADOR MD 04/04/17 Reported Medications Calcium Carbonate* (Calcium Carbonate*) 600 MG Ca Tab, 600 MG PO, TAB 04/02/17 Vit-Iron Fumarate-FA ( Tablet) 1 Each Tablet, 1 TAB PO DAILY, TAB 01/18/17 Current Medications Cefazolin Sodium/ Dextrose 50 ml @ 100 mls/hr ONCE IVPB ; Start 10/20/18 at 12:00 Oxytocin/Lactated Ringer's 500 ml @ 125 mls/hr POST IV ; Start 10/20/18 at 12:00 Oxytocin/Lactated Ringer's 500 ml @ 0 mls/hr ONCE PRN IV .VAGINAL BLEEDING; Start 10/20/18 at 12:00 Methylergonovine Maleate (Methergine) 0.2 mg ONCE PRN IM .VAGINAL BLEEDING; Start 10/20/18 at 12:00 Carboprost Tromethamine (Hemabate) 250 mcg ONCE PRN IM .VAGINAL BLEEDING; Start 10/20/18 at 12:00 Misoprostol (Cytotec) 1,000 mcg ONCE PRN ME .VAGINAL BLEEDING; Start 10/20/18 at 12:00 Meds reviewed: Yes Allergies Coded Allergies: No Known Drug Allergies (Verified Allergy, Mild, 09/30/17) Allergies Reviewed: Yes Labs/Studies Labs Reviewed: Reviewed by anesthesiologist Result Diagram: 10/20/18 1221 Laboratory Tests 10/20/18 12:21 Blood Bank Test 10/20/18 12:21 Antibody Screen NEGATIVE Blood Type B POSITIVE Rh Immune Globulin Candidate NO test: Positive Studies: ECG (n/a), CXR (n/a) Pre-procedure Exam Airway: Adequate mouth opening, Adequate thyromental dist Mallampati: Mallampati II Teeth: Normal Lung: Normal Heart: Normal ASA Physical Status ASA physical status: 2 Emergency: None Planned Anesthetic Neuraxial: Spinal Planned Pain Management Sub-arachniod narcotics, Parenteral pain med Pre-operative Attestations Prior to commencing anesthesia and surgery, the patient was re-evaluated, there was verification of: *The patient's identity *The results of appropriate recent lab work and preoperative vital signs *The above evaluation not changing prior to induction *Anesthetic plan, risk benefits, alternative and complications discussed with patient/family; questions answered; patient/family understands, accepts and wishes to proceed. KATIE RODAS MD Oct 20, 2018 13:15
[2018-10-20] MEDS ORDERED: morphine SULFATE/PF (10 MG/10 ML) INJ ONE (13:33)
[2018-10-20] MEDS ORDERED: PHENYLephrine 10 MG INJ ONE (13:33)
[2018-10-20] MEDS ORDERED: OXYTOCIN 10 UNIT INJ ONE (13:33)
[2018-10-20] MEDS ORDERED: PHENYLephrine (100 MCG/ML) 10ML SYG ONE (13:34)
[2018-10-20] MEDS ORDERED: ONDANSETRON 4 MG INJ IV PRN ×2 (14:00)
[2018-10-20] MEDS ORDERED: DIPHENHYDRAMINE 50 MG INJ IV PRN (14:00)
[2018-10-20] MEDS ORDERED: ACETAMINOPHEN 500 MG TAB PO PRN (14:00)
[2018-10-20] MEDS ORDERED: EPHEDrine SULFATE 50 MG/5 ML SYG IV PRN (14:00)
[2018-10-20] MEDS ORDERED: NALBUPHINE HCL (10 MG/1 ML) INJ IV PRN (14:00)
[2018-10-20] MEDS ORDERED: HYDROmorphONE 1 MG/5 ML IV SYRINGE IV PRN ×2 (14:00)
[2018-10-20] MEDS ORDERED: KETOROLAC 30 MG INJ IV PRN (14:00)
[2018-10-20] MEDS ORDERED: LABETALOL HCL 20MG INJ IV PRN (14:00)
[2018-10-20] MEDS ORDERED: OXYCODONE/ACETAMINOPHEN (5/325) TAB PO PRN ×2 (14:00→18:00)
[2018-10-20] MEDS ORDERED: HYDROmorphONE 0.5 MG/0.5 ML SYG IV PRN ×2 (14:00)
[2018-10-20] MEDS ORDERED: HYDROCODONE/APAP (5/325) TAB PO PRN ×2 (14:00→18:00)
[2018-10-20] MEDS ORDERED: morphine 2 MG INJ IV PRN ×2 (14:00)
[2018-10-20] MEDS ORDERED: METOCLOPRAMIDE 10 MG INJ IV PRN (14:00)
[2018-10-20] MEDS ORDERED: FENTAnyl 50 MCG/ML VIAL IV PRN ×2 (14:00)
[2018-10-20] MEDS ORDERED: NALOXONE (0.4 MG/ML) INJ IV PRN (14:00)
[2018-10-20] MEDS ORDERED: KETOROLAC 30 MG INJ ONE (14:14)
[2018-10-20] MEDS ORDERED: METOCLOPRAMIDE 10 MG INJ ONE (14:14)
[2018-10-20] MEDS ORDERED: DEXAMETHASONE 4 MG/ML 1 ML INJ ONE (14:14)
--- NOTE | 2018-10-20 14:30 | HP ---
Date/Time of Note Date/Time of Note DATE: 10/20/18 TIME: 14:27 OB - History Hx of Present Free Text/Dictation 38-year-old female 6 para 5 admitted for repeat at 39 weeks Last Menstrual Period: January 10, 2018 Estimated Due Date: Oct 27, 2018 : 6 Para: 5 Care: Good Care Ultrasounds: Normal mid trimester US Obstetrical Complications: None Medical Complications: None, Other (Previous x3) Past Family/Social History * Past Medical, Surgical, Family and Obstetric Histories reviewed from chart. Blood Type: B+ Rubella: immune RPR/VDRL: Negative GBS Status: Negative HBsAG: Negative OB Admission Exam Physical Exam HEENT: WNL Heart: Rhythm Normal Lungs: Clear, Equal Abdomen: WNL Extremities: Normal Reflexes: Normal Cervical Dilatation: None Effacement: 0% Station: -3 Membranes: Intact Heart Rate: 140's Accelerations: Accelerations Present Decelerations: No Decelerations Varibility: Marked Contractions on Admission: None Last 72 hours Lab Results CBC & BMP 10/20/18 12:21 OB Assessment/Plan Reason for admission: section Other Assessment: Term gestation Previous x3 Other plan: Repeat section VARUN AMADOR MD Oct 20, 2018 14:30
[2018-10-20] MEDS ORDERED: KETOROLAC 30 MG INJ IV STA (14:34)
--- NOTE | 2018-10-20 14:34 | OPR ---
Operative Report Planned Procedure Procedure date Oct 20, 2018 Procedure(s) Repeat delivery Performed by see signature line Clay Miller: SARAH PRITCHETT MD Anesthesiologist: KATIE RODAS MD Pre-procedure diagnosis Term gestation Previous x3 Herda6Ig Anesthesia Type: [id number] spinal Post-Procedure Post-procedure diagnosis Status post repeat Findings Live Baby with incomplete breech presentation Meconium stained amniotic fluid Normal-appearing right and left fallopian tubes and ovary Estimated Blood Loss: 500 - 600 mls Specimen(s) none Grafts/Implant(s) none Complication(s) none Pt Condition post procedure: stable Disposition: PACU Procedure Description Under satisfactory anaesthesia a Pfannenstiel incision was made two fingerbreadth above and parallel to the symphysis of pubis around the previous scar and previous scar was removed Incision was extended laterally to the border of the Recti muscles on either sides. Incision was carried down with sharp and blunt dissection until fascia was reached. Anterior Recti muscle fascia was incised in mid portion and incision extended laterally to the border of skin incision. Fascia was mobilized from muscle superiorly and Recti muscles were from midline using sharp and blunt dissection. Peritoneum was visualized; Avoiding bowel and bladder it was incised . Incision was extended superiorly and inferiorly. Bladder blade was placed. Posterior peritoneum covering the lower segment of the uterus and lower segment of the uterus were incised.Low transverse uterine incision was made on lower segment of the uterus. Incision extended laterally to the border of Round Lig. on either sides and baby was delivered from via total breech extraction without any difficulty. Amniotic fluid appeared meconium stained. Cord blood was obtained and cord had 3 vessels . Placenta was delivered spontaneously and appeared intact and complete. Intrauterine cavity was rubbed with a laparotomy sponge. Uterine incision was closed in 2 layers using running stitches of No1 Monocryl. Hemostasis appeared secure. Ovaries and Fallopian tubes were within normal limits. Bilateral Tubal Ligation was performed by following procedure: R fallopian tube was raised in mid portion; 3 cm below the raised area single 0 Plain Gut stitch was placed. Another 0 Plain gut stitch was placed half a centimeter below the first and a knuckle of tube that was formed was incised above the first stitch. Same procedure was done on fallopian tube on the opposite side. Hemostasis appeared to be secure on ligated sites of either fallopian tubes. Announcing needle, lap sponge and instrument count to be correct abdomen was closed in layers as follows: Peritoneum and Recti muscles with running stitches of 2-0 Vicryl. Fascia with running stitch of No 1 PDS. Subcutaneous tissue with running stitches of 2-0 Monocryl and skin was closed using song. Patient tolerated the procedure well and was transferred to [facility] in good condition. VARUN AMADOR MD Oct 20, 2018 14:34
--- NOTE | 2018-10-20 14:56 | PAC ---
Date/Time of Note Date/Time of Note DATE: 10/20/18 TIME: 14:55 Post-Anesthesia Notes Post-Anesthesia Note Last documented vital signs T: 98.0 Activity: WNL Respiratory function: WNL Cardiovascular function: WNL Mental status: Baseline Pain reasonably controlled: Yes Hydration appropriate: Yes Nausea/Vomiting absent: Yes KATIE RODAS MD Oct 20, 2018 14:56
[2018-10-20] MEDS ORDERED: AZITHROMYCIN 500MG/NS (PMX) 250 ML IVPB ONE (15:00)
[2018-10-20] MEDS ORDERED: EPHEDrine 25 MG/5 ML SYG ONE (15:08)
[2018-10-20 16:10] VITALS: BP 86/46; PULSE 98; RESP 18
[2018-10-20] MEDS: LACTATED RINGER'S 1,000 ML IV SCH (16:11)
[2018-10-20 16:25] VITALS: BP 102/52; PULSE 90; RESP 16
[2018-10-20 16:40] VITALS: BP 103/50; PULSE 92; RESP 18
[2018-10-20 17:00] VITALS: BP 103/54; PULSE 92; RESP 16
[2018-10-20 17:30] VITALS: BP 97/59; PULSE 100; RESP 18
[2018-10-20] MEDS ORDERED: LACTATED RINGER'S 1,000 ML IV SCH (17:48)
[2018-10-20] MEDS ORDERED: LANOLIN HPA 1 PKT TOP PRN (18:00)
[2018-10-20] MEDS ORDERED: NA PHOSPHATE/BIPHOS 133 ML ENEMA PR PRN (18:00)
[2018-10-20] MEDS: CLINDAMYCIN 300 MG CAP PO SCH (18:00)
[2018-10-20] MEDS: CEFAZOLIN 2 GM/50 ML (PMX) 50 ML IVPB SCH (18:00)
[2018-10-20 20:00] VITALS: BP 96/51; PULSE 103; RESP 16
[2018-10-20] MEDS: SENNA/DOCUSATE NA (8.6MG/50MG) TAB PO SCH (21:28)
[2018-10-21] VITALS: BP 99/53; PULSE 82; RESP 16
[2018-10-21] MEDS: LACTATED RINGER'S 1,000 ML IV SCH ×3 (00:11→16:11)
[2018-10-21] MEDS: CLINDAMYCIN 300 MG CAP PO SCH ×6 (02:21→23:34)
[2018-10-21] MEDS: CEFAZOLIN 2 GM/50 ML (PMX) 50 ML IVPB SCH ×2 (02:23→11:25)
[2018-10-21 04:00] VITALS: BP 91/55; PULSE 78; RESP 20
[2018-10-21 07:45] VITALS: BP 104/53; PULSE 78; RESP 19
[2018-10-21] MEDS: SENNA/DOCUSATE NA (8.6MG/50MG) TAB PO SCH ×2 (08:15→20:49)
[2018-10-21] MEDS ORDERED: BISACODYL 10 MG SUPP PR ONE (10:00)
[2018-10-21 12:45] VITALS: BP 106/55; PULSE 79; RESP 18
[2018-10-21] MEDS: IBUPROFEN 800 MG TAB PO SCH ×2 (14:07→22:18)
--- NOTE | 2018-10-21 15:17 | PN ---
Date/Time of Note Date/Time of Note DATE: 10/21/18 TIME: 15:12 Assessment/Plan VTE Prophylaxis VTE Prophylaxis Intervention: ambulation Lines/Catheters IV Catheter Type (from Nrsg): Peripheral IV Assessment/Plan Assessment/Plan Status post postop day #1 Will advance diet and ambulate Continue to monitor vitals Subjective 24 Hr Interval Summary No bowel movements but passing flatus Constitutional: no complaints, improved, ambulates, BM, flatus, urine output Pain Control: well controlled Exam/Review of Systems Vital Signs Vitals Vital Signs Date Temp Pulse Resp B/P (MAP) Pulse Ox O2 O2 Flow FiO2 Time Delivery Rate 10/21/18 98.8 79 18 106/55 99 Room Air 12:45 (72) Intake and Output 10/20/18 10/20/18 10/21/18 1515:00 23:00 07:00 IntakeIntake Total 60 ml 1050 ml OutputOutput Total 1100 ml 1700 ml BalanceBalance -1040 ml -650 ml Exam Free Text/Dictation Abdomen is soft and not distended Bowel sounds are present Incision is covered Constitutional: alert, oriented, well developed Psych: no complaints, nl mood/affect Head: normocephalic, atraumatic Eyes: nl conjunctiva, EOMI, nl lids, nl sclera ENMT: nl external ears & nose, nl lips & teeth, nl nasal mucosa & septum, mucosa pink and moist Neck: supple, non-tender Respiratory: clear to auscultation, normal air movement Cardiovascular: regular rate and rhythm, nl pulses Gastrointestinal: soft, nl liver, spleen, non-tender Musculoskeletal: nl extremities to inspection, nl gait and stance Extremities: normal pulses 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
[2018-10-21 16:00] VITALS: BP 102/58; PULSE 85; RESP 19
[2018-10-21 19:45] VITALS: BP 94/51; PULSE 85; RESP 19
[2018-10-22 03:40] VITALS: BP 105/55; PULSE 74; RESP 20
[2018-10-22] MEDS: IBUPROFEN 800 MG TAB PO SCH ×3 (05:38→21:38)
[2018-10-22] MEDS: CLINDAMYCIN 300 MG CAP PO SCH ×4 (05:38→23:28)
[2018-10-22 08:00] VITALS: BP 113/70; PULSE 73; RESP 18
[2018-10-22] MEDS: SENNA/DOCUSATE NA (8.6MG/50MG) TAB PO SCH ×2 (09:00→20:34)
[2018-10-22 15:41] VITALS: BP 103/55; PULSE 80; RESP 20
[2018-10-22 20:35] VITALS: BP 106/58; PULSE 78; RESP 18
--- NOTE | 2018-10-22 22:38 | DS ---
Date/Time of Note Date/Time of Note DATE: 10/22/18 TIME: 22:36 Discharge Summary Admission/Discharge Info Admit Date/Time Oct 20, 2018 at 11:30 Discharge Date/Time 10/22 or 10/23/2018 Discharge Diagnosis S/P C/S Patient Condition: Good Procedures repeat C/S Hx of Present Illness 38 y/o female had repeat C/S Hospital Course uncomplicated Home Meds Active Scripts Ibuprofen* (Motrin*) 400 Mg Tab, 400 MG PO Q6, #30 TAB Prov:STANTON BALTAZAR PA-C 09/30/17 Ondansetron (Ondansetron Odt) 4 Mg Tab.rapdis, 4 MG PO Q6H PRN for NAUSEA AND/OR VOMITING, #10 TAB Prov:STANTON BALTAZAR PA-C 09/30/17 Ibuprofen* (Ibuprofen*) 800 Mg Tablet, 800 MG PO Q8, #30 TAB 0 Refills Prov:VARUN AMADOR MD 04/04/17 Reported Medications Calcium Carbonate* (Calcium Carbonate*) 600 MG Ca Tab, 600 MG PO, TAB 04/02/17 Vit-Iron Fumarate-FA ( Tablet) 1 Each Tablet, 1 TAB PO DAILY, TAB 01/18/17 Follow-up Plan 2-3 dats in clinic for staple removal Primary Care Provider Care Physician No Primary Time spent on discharge: > 30 minutes VARUN AMADOR MD Oct 22, 2018 22:38
--- NOTE | 2018-10-22 22:41 | DS ---
Date/Time of Note Date/Time of Note home today or next day DATE: 10/22/18 TIME: 22:39 Obstetrical Discharge Record Final Diagnosis Final Diagnosis: Term delivered Other Final Diagnosis S/P C/S Section Section: Repeat Condition on Discharge Physical Assessment Last Vitals: see nurses notes Voiding: Yes Bowel Movement: Yes Breast: Soft, non-tender, Filling Fundus: Firm Abdomen and Incision: abdomen: soft BS+ incision: healing well without induration and or erythema Episiotomy: N/A Calf Tenderness: No Patient Condition: Good VARUN AMADOR MD Oct 22, 2018 22:41
--- NOTE | 2018-10-22 22:43 | PD.PPDC ---
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 Provider Information Physician Information 38 y/o female had repeat C/S Diagnosis [id number] Final Diagnosis: [id number] S/P repeat C/S Condition [id number] Patient Condition: Bnlix5m Good Diet [id number] Diet: Keenx4v Resume Regular Diet Activity/Restrictions [id number] Activity: Igjkf0b May Shower [id number] Restrictions: Irrbv3u No Exercising No Lifting Nothing in the Vagina [id number] Return to Work or School: [address] Dec 19, 2018 Wound/Drain Care Instructions [id number] Wound/Drain Care Instructions: Wuyrr3y Keep clean and dry Follow-up Follow-up with Physician: 2, 3, Day/Days (in clinic for staple removal) Return to clinic for Reghl8Wp 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
[2018-10-22] MEDS ORDERED: IBUP-1544 PO (22:49)
[2018-10-22] MEDS ORDERED: ACET325T33 PO (22:49)
[2018-10-22] MEDS ORDERED: ACETAMINOPHEN 325 MG TAB PO SCH (23:00)
[2018-10-23 04:00] VITALS: BP 103/58; PULSE 68; RESP 18
[2018-10-23] MEDS: CLINDAMYCIN 300 MG CAP PO SCH (05:25)
[2018-10-23] MEDS: IBUPROFEN 800 MG TAB PO SCH (05:26)
[2018-10-23 08:00] VITALS: BP 112/72; PULSE 78; RESP 19
[2018-10-23] MEDS: SENNA/DOCUSATE NA (8.6MG/50MG) TAB PO SCH (08:28)
[2018-10-23] MEDS ORDERED: DIPHTH/TET/ACEL PERTUSS (ADULT) 0.5 ML VIAL IM* ONE (09:00)
[2018-10-23] MEDS ORDERED: MEASLES,MUMPS,RUBELLA VACCINE INJ SC* ONE (09:00)
== END 2018-10-23 15:40 | disposition home or self-care (01) | DRG 788 ==
LOC: L-D 11:30 → PP1 17:16
PROVIDERS: ADMIT Obstetrics & Gynecology; ATTEND Obstetrics & Gynecology
PROC: 10D00Z1 Extraction of Products of Conception, Low, Open Approach (ICD-10-PCS; principal; 2018-10-20 13:00)
DX: O34.211 Maternal care for low transverse scar from previous cesarean delivery (principal); Z3A.39 39 weeks gestation of pregnancy; Z37.0 Single live birth
CPT/HCPCS: 85025; 85610; 85730; 86592; 86850; 86900; 86901; 87340; 99464; J0456; J0690; J1100; J1885; J2274; J2370; J2405; J2590; J2765; J7120